=== PATIENT | male | born 1995 | race Caucasian/White ===

== ENCOUNTER 2016-12-04 12:24 | Emergency (ER) | payer MEDICAID, OTHER ==
[~2016-12-04] VITALS: Ht 162.6 cm; Wt 86.0 kg
[2016-12-04 12:30] VITALS: Ht 162.6 cm; Wt 86.0 kg
[2016-12-04] MEDS ORDERED: ONDANSETRON (ODT) 4 MG TAB ODT STA (13:00)
[2016-12-04] MEDS ORDERED: SOD CHLORIDE 0.9% 1,000 ML IV ONE (13:00)
[2016-12-04 13:25] LABS: ADD SCAN DIFF NO
[2016-12-04 13:27] LABS: BASOPHILS % 0.3 % (0.0-2.0); EOSINOPHILS # 1.5 10^3/ul (0.0-0.5); EOSINOPHILS % 15.4 % (0.0-7.0); HEMATOCRIT 46.1 % (42.0-52.0); HEMOGLOBIN 15.7 g/dl (14.0-18.0); LYMPHOCYTES # 2.1 10^3/ul (0.8-2.9); MEAN CORPUSCULAR HEMOGLOBIN 28.2 pg (29.0-33.0); MEAN CORPUSCULAR HGB CONC 34.1 g/dl (32.0-37.0); MEAN CORPUSCULAR VOLUME 82.9 fl (82.0-101.0); MEAN PLATELET VOLUME 11.2 fl (7.4-10.4); MONOCYTE # 0.8 10^3/ul (0.3-0.9); MONOCYTES % 8.2 % (0.0-11.0); NEUTROPHIL # 5.1 10^3/ul (1.6-7.5); NEUTROPHILS % 53.3 % (39.0-77.0); PLATELET COUNT 181 10^3/UL (140-415); RED BLOOD COUNT 5.56 10^6/ul (4.70-6.10); RED CELL DISTRIBUTION WIDTH 12.5 % (11.5-14.5); WHITE BLOOD COUNT 9.5 10^3/ul (4.8-10.8)
[2016-12-04 13:42] LABS: ALBUMIN 4.6 g/dl (3.3-4.9); POTASSIUM 3.6 mmol/L (3.5-5.1)
[2016-12-04 13:44] LABS: BILIRUBIN,INDIRECT 0.6 mg/dl (0-1.1); BILIRUBIN,TOTAL 0.6 mg/dl (0.2-1.3); CREATININE 0.72 mg/dl (0.61-1.24)
[2016-12-04 13:45] LABS: ALBUMIN/GLOBULIN RATIO 1.35; CALCIUM 9.3 mg/dl (8.4-10.2)
[2016-12-04] MEDS ORDERED: IBUP400T22 PO (13:50)
[2016-12-04] MEDS ORDERED: ONDA4TAB14 PO (13:50)
--- NOTE | 2016-12-04 13:57 | ERA ---
ER Documentation Chief Complaint Date/Time DATE: 12/04/16 TIME: 13:53 Chief Complaint ap x 3 days; diarrhea HPI This is a 21-year-old male presented with abdominal pain. 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 Patient reports decreased appetite and vomiting diarrhea for 1 week. Patient also reports a mild fever but has not taken his temperature. Pt denies upper respiratory tract symptoms, diabetes, diarrhea, constipation, ingestion of new, unknown, or undercooked foods/drinks, neck stiffness, alcohol/ drug abuse, h/o psych disorder, or thyroid pathology. ROS All systems reviewed and are negative except as per history of present illness. Medications Home Meds Active Scripts Ibuprofen* (Motrin*) 400 Mg Tab, 400 MG PO Q6H Y for PAIN AND OR ELEVATED TEMP, #30 TAB Prov:AKIN BILLINGSLEY PA-C 12/04/16 Ondansetron (Ondansetron Odt) 4 Mg Tab.rapdis, 4 MG PO Q6H Y for NAUSEA AND/OR VOMITING, #10 TAB Prov:AKIN BILLINGSLEY PA-C 12/04/16 Allergies Allergies: Coded Allergies: No Known Allergy (Unverified , 12/04/16) PMhx/Soc Medical and Surgical Hx: pt denies Medical Hx, pt denies Surgical Hx Hx Alcohol Use: No Hx Substance Use: No Hx Tobacco Use: No Physical Exam Vitals Vital Signs Date Time Temp Pulse Resp B/P Pulse Ox O2 Delivery O2 Flow Rate FiO2 12/04/16 12:30 98.4 77 18 11/72 97 Physical Exam Const: [] Head: Atraumatic Eyes: Normal Conjunctiva ENT: Normal External Ears, Nose and Mouth. Neck: Full range of motion..~ No meningismus. Resp: Clear to auscultation bilaterally Cardio: Regular rate and rhythm, no murmurs Abd: Soft, non tender, non distended. Normal bowel sounds Skin: No petechiae or rashes Back: No midline or flank tenderness Ext: No cyanosis, or edema Neur: Awake and alert Psych: Normal Mood and Affect Result Diagram: 12/04/16 1310 12/04/16 1310 Results 24 hrs Laboratory Tests Test 12/04/16 13:10 White Blood Count 9.510^3/ul Red Blood Count 5.5610^6/ul Hemoglobin 15.7g/dl Hematocrit 46.1% Mean Corpuscular Volume 82.9fl Mean Corpuscular Hemoglobin 28.2pg Mean Corpuscular Hemoglobin Concent 34.1g/dl Red Cell Distribution Width 12.5% Platelet Count 02757^3/UL Mean Platelet Volume 11.2fl Neutrophils % 53.3% Lymphocytes % 22.0% Monocytes % 8.2% Eosinophils % 15.4% Basophils % 0.3% Nucleated Red Blood Cells % 0.0/100WBC Neutrophils # 5.110^3/ul Lymphocytes # 2.110^3/ul Monocytes # 0.810^3/ul Eosinophils # 1.510^3/ul Basophils # 0.010^3/ul Nucleated Red Blood Cells # 0.010^3/ul Sodium Level 140mmol/L Potassium Level 3.6mmol/L Chloride Level 101mmol/L Carbon Dioxide Level 28mmol/L Anion Gap 15 Blood Urea Nitrogen 12mg/dl Creatinine 0.72mg/dl Glucose Level 115mg/dl Calcium Level 9.3mg/dl Total Bilirubin 0.6mg/dl Direct Bilirubin 0.00mg/dl Indirect Bilirubin 0.6mg/dl Aspartate Amino Transf (AST/SGOT) 39IU/L Alanine Aminotransferase (ALT/SGPT) 84IU/L Alkaline Phosphatase 72IU/L Total Protein 8.0g/dl Albumin 4.6g/dl Globulin 3.40g/dl Albumin/Globulin Ratio 1.35 Current Medications Medications (Trade) Dose Ordered Sig/Moises Route PRN Reason Start Time Stop Time Status Last Admin Dose Admin Ondansetron HCl 4 mg 4 mg ONCE STAT ODT 12/04/16 13:00 12/04/16 13:02 DC 12/04/16 13:13 Sodium Chloride (NS) 1,000 ml @ 1,000 mls/hr Q1H ONCE IV 12/04/16 13:00 12/04/16 13:59 12/04/16 13:13 Procedures/MDM Male patient with bilateral lower quadrant abdominal discomfort, displaying tenderness to deep palpation. Work up is a knowledgeable for eosinophilia. At this time I do not suspect testicular torsion, hernia, appendicitis, intestinal ischemia, AAA, prostatitis, or epididymitis. The most likely diagnosis at this time is gastroenteritis. On repeat exam abdomen remains soft and non-tender. Pt is well appearing, and tolerates PO. Patient will be discharged with ibuprofen for discomfort possible fever as well as Zofran for nausea. Return precautions given. Departure Diagnosis: Primary Impression: Abdominal pain Qualified Code: R10.30 - Lower abdominal pain Condition: Stable Patient Instructions: Abdominal Pain Additional Instructions: Follow up with your PCP within the next 1-3 days for a more thorough evaluation and a possible referral to a specialist. Return the the emergency department immediately if symptoms worsen or change. If you have any questions regarding medications, ask your pharmacist or us before you leave. If any adverse reactions occur while taking your medications, discontinue the treatment and return to the emergency department immediately. Take your medications as directed, and complete the entire course of treatment. AKIN BILLINGSLEY PA-C Dec 04, 2016 13:56
== END 2016-12-04 14:32 | disposition home or self-care (01) ==
LOC: FTE 12:24
DX: R10.30 Lower abdominal pain, unspecified (principal); R11.2 Nausea with vomiting, unspecified
CPT/HCPCS: 80053; 85025; J7030; Z7610; 96360

== ENCOUNTER 2018-01-03 23:35 | Emergency (ER) | END 2018-01-04 04:00 | disposition home or self-care (01) ==

== ENCOUNTER 2018-06-30 22:18 | Emergency (ER) | END 2018-07-01 02:39 | disposition home or self-care (01) ==